=== PATIENT | female | born 1940 | race Caucasian/White ===

== ENCOUNTER 2018-04-18 12:56 | Observation (INO) ==
--- NOTE | 2018-04-18 13:25 | Emergency Department Note ---
Disposition Clinical Impression: Congestive heart failure Qualifiers: Heart failure type: unspecified Heart failure chronicity: acute Qualified Code( s): I50.9 - Heart failure, unspecified Disposition: Admitted As Inpatient Condition: Fair Referrals: Kiki Toney CNP [Primary Care Provider] - Forms: ED Satisfaction Letter Time of Disposition: 15:37 SOB HPI - General Chief Complaint: ED Shortness of Breath/Dyspnea Stated Complaint: diff breathing Time Seen by Provider: 04/18/18 13:22 Source: EMS Mode of arrival: EMS Limitations: age Nursing Notes Reviewed: Yes Vital Signs Reviewed: Yes - History of Present Illness 77-year-old who [place] and choked their concern that he she may have aspirated. She is stable on arrival. 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 Context: choking/aspiration, other Severity: mild, moderate Consistency/Duration: constant Improves with: nothing Worsens with: nothing Associated symptoms: Reports: denies other symptoms Treatment prior to arrival: oxygen Cough present: Yes Cough Description: Involuntary Cough Frequency: Intermittent Sputum production: No - Related Data Home Medications Medication Instructions Recorded Confirmed Albuterol Sulfate [Proair Hfa] 2 puff IH Q4H 01/23/16 04/18/18 Alendronate Sodium [Fosamax] 70 mg PO QWEEK 01/23/16 04/18/18 Atorvastatin [Lipitor] 20 mg PO HS 01/23/16 04/18/18 Beclomethasone Diprop 80mcg [Qvar 1 puff IH BID 01/23/16 04/18/18 80 mcg] Benztropine [Cogentin] 0.5 mg PO Q12H 01/23/16 04/18/18 Cholecalciferol (Vitamin D3) 50,000 unit PO QMONTH 01/23/16 04/18/18 [Vitamin D] Docusate [Colace] 100 mg PO BID 01/23/16 04/18/18 Metoprolol [Lopressor] 25 mg PO BID 01/23/16 04/18/18 Mirtazapine [Remeron] 15 mg PO HS 01/23/16 04/18/18 OLANZapine [Zyprexa] 30 mg PO HS 01/23/16 04/18/18 Omeprazole [PriLOSEC] 40 mg PO QAM 01/23/16 04/18/18 Warfarin [Coumadin] 3 mg PO MOWEFR 01/23/16 04/18/18 Warfarin [Coumadin] 4 mg PO SUTHSA 01/23/16 04/18/18 Losartan Potassium [Cozaar] 75 mg PO DAILY 04/18/18 04/18/18 Montelukast [Singulair] 10 mg PO DAILY 04/18/18 04/18/18 Propranolol [Inderal] 10 mg PO BID 04/18/18 04/18/18 Allergies Allergy/AdvReac Type Severity Reaction Status Date / Time allergies Allergy See Uncoded 04/18/18 13:07 Comments All systems ED: reviewed and negative except as stated. Constitutional: Denies: fever, chills, weakness, weight change Eyes: Denies: eye pain, eye discharge, vision change ENT ED: Denies: ear pain, throat pain, dental pain, hearing loss, epistaxis, congestion, dysphagia Cardiovascular: Denies: chest pain, palpitations, dyspnea on exertion, edema, syncope Respiratory: Reports: cough, dyspnea. Denies: wheezes, hemoptysis, stridor Gastrointestinal: Denies: abdominal pain, nausea, vomiting, diarrhea, constipation, hematemesis, melena, hematochezia Genitourinary: Denies: dysuria, frequency, hematuria, discharge Musculoskeletal: Denies: back pain, neck pain, arthralgia, myalgia Integumentary: Denies: rash, abrasion, lesions Neurological: Denies: headache, weakness, numbness, paresthesias, confusion, abnormal gait, vertigo Psychiatric: Denies: anxiety, depression, suicidal thoughts, homicidal thoughts , auditory hallucinations, visual hallucinations Endocrine: Denies: fatigue Hematological/Lymphatic: Denies: easy bleeding, easy bruising Allergic/Immunologic: Denies: facial swelling, urticaria Past Medical History - Past Medical History Medical history: Reports: arthritis, atrial fibrillation, COPD, GERD, hyperlipidemia, hypertension, seizures, other Surgical history: Reports: cholecystectomy Psychiatric history: Reports: anxiety 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 - Social History Smoking Status: Former smoker Smokeless Tobacco Status: No Alcohol use: Reports: none Drug use: Reports: none Physical Exam - General Limitations: age General appearance: alert, in no apparent distress - Head Head exam: atraumatic, normocephalic, normal inspection - Eye Eye exam: Present: normal appearance, PERRL, EOMI - ENT ENT exam: normal exam, normal oropharynx, mucous membranes moist - Neck Neck exam: Present: normal inspection, full ROM, trachea midline - Chest Chest inspection: Present: normal inspection, symmetric chest wall rise - Respiratory Respiratory exam: Present: normal lung sounds bilaterally - Cardiovascular Cardiovascular exam: Present: regular rate, normal rhythm, normal heart sounds - Abdominal Exam Abdominal exam: Present: soft, Non-Tender. Absent: tenderness, distention, guarding, rebound, rigidity - Extremities Exam Extremities exam: Present: normal inspection, full ROM. Absent: tenderness, pedal edema - Expanded Lower Extremity Exam Neurovascular/Tendon exam: Absent: motor deficit, sensory deficit, tendon deficit Gait: observed and normal - Back Exam Back exam: Present: normal inspection, full ROM. Absent: tenderness - Neurological Exam Neurological exam: Present: alert, oriented X3 - Psychiatric Psychiatric exam: Present: normal affect - Skin Skin exam: Present: warm, dry, intact, normal color Course - Reevaluation(s) Reevaluation #1: 77-year-old who comes in with increasing shortness of breath. Patient had a cough for about a week. She choked on a hamburger today. Chest x-ray shows some pulmonary congestion her BMP slightly elevated looks like she may have a little bit of failure. No recent echo has been done. We will admit patient for further evaluation. Time: 15:36 - Consultations Consultation #1: Discussed with , rei. Time: 15:39 Vital Signs Temperature 98.8 F 04/18/18 12:59 Pulse Rate 88 04/18/18 12:59 Respiratory Rate 16 04/18/18 12:59 Blood Pressure 162/86 04/18/18 12:59 O2 Sat by Pulse Oximetry 93 04/18/18 12:59 Temperature 98.8 F 04/18/18 12:59 Pulse Rate 74 04/18/18 14:58 Respiratory Rate 16 04/18/18 14:58 Blood Pressure 182/103 04/18/18 14:58 O2 Sat by Pulse Oximetry 98 04/18/18 14:58 Oxygen Delivery Oxygen Delivery Room Air Shortness of Breath/Dyspnea - Lab Data Result diagrams: 04/18/18 14:10 04/18/18 14:10 Lab Results 04/18/18 04/18/18 04/18/18 Range/Units 14:10 14:10 14:10 WBC 9.5 (4.3-11.1) K/mcL RBC 4.35 (3.82-4.97) M/mcL Hgb 12.5 (11.5-15.4) g/dL Hct 38.3 (35.3-44.9) % MCV 88.0 (83.0-100.0) fL MCH 28.7 (28.0-33.3) pg MCHC 32.6 (31.6-35.5) g/dL RDW 16.2 H (11.5-14.5) % Plt Count 208 (140-400) K/mcL MPV 11.8 (9.4-12.4) fL Immature Gran % 0.4 (0-4) % Seg Neutrophils % 78.1 % Lymphocytes % 13.5 % Monocytes % 5.5 % Eosinophils % 2.0 % Basophils % 0.5 % Neutrophils # 7.4 (1.6-8.9) K/mcL Lymphocytes # 1.3 (0.6-4.6) K/mcL Monocytes # 0.5 (0.0-1.3) K/mcL Eosinophils # 0.2 (0.0-0.6) K/mcL Basophils # 0.1 (0.0-0.2) K/mcL PT (9.4-12.1) Seconds INR Sodium 135 L (136-145) mEq/L Potassium 4.7 (3.5-5.1) mEq/L Chloride 102 (98-107) mEq/L Carbon Dioxide 25 (23-29) mEq/L BUN 22 (8-23) mg/dL Creatinine 0.72 (0.60-1.20) mg/dL Est GFR ( Amer) > 60 (> 60) Est GFR (Non-Af Amer) > 60 (> 60) BUN/Creatinine Ratio 31 H (6-26) Glucose 107 H (70-105) mg/dL Calculated Osmolality 284 (280-300) Lactic Acid 1.1 (0.5-2.2) mmol/L Calcium 9.6 (8.6-10.3) mg/dL Troponin I < 0.03 (< 0.04) ng/mL B-Natriuretic Peptide (Less than 100) pg/mL 04/18/18 04/18/18 Range/Units 14:10 14:10 WBC (4.3-11.1) K/mcL RBC (3.82-4.97) M/mcL Hgb (11.5-15.4) g/dL Hct (35.3-44.9) % MCV (83.0-100.0) fL MCH (28.0-33.3) pg MCHC (31.6-35.5) g/dL RDW (11.5-14.5) % Plt Count (140-400) K/mcL MPV (9.4-12.4) fL Immature Gran % (0-4) % Seg Neutrophils % % Lymphocytes % % Monocytes % % Eosinophils % % Basophils % % Neutrophils # (1.6-8.9) K/mcL Lymphocytes # (0.6-4.6) K/mcL Monocytes # (0.0-1.3) K/mcL Eosinophils # (0.0-0.6) K/mcL Basophils # (0.0-0.2) K/mcL PT 21.8 H (9.4-12.1) Seconds INR 1.9 Sodium (136-145) mEq/L Potassium (3.5-5.1) mEq/L Chloride (98-107) mEq/L Carbon Dioxide (23-29) mEq/L BUN (8-23) mg/dL Creatinine (0.60-1.20) mg/dL Est GFR ( Amer) (> 60) Est GFR (Non-Af Amer) (> 60) BUN/Creatinine Ratio (6-26) Glucose (70-105) mg/dL Calculated Osmolality (280-300) Lactic Acid (0.5-2.2) mmol/L Calcium (8.6-10.3) mg/dL Troponin I (< 0.04) ng/mL B-Natriuretic Peptide 158 H (Less than 100) pg/mL - EKG Data EKG attestation: Yes I reviewed and interpreted this EKG. Rate: Reports: normal Rhythm: Reports: A.Fib Interpretation: Reports: no acute changes
[2018-04-18 14:23] LABS: Basophils # 0.1 K/mcL (0.0-0.2); Basophils % 0.5 %; Eosinophils # 0.2 K/mcL (0.0-0.6); Hematocrit 38.3 % (35.3-44.9); Hemoglobin 12.5 g/dL (11.5-15.4); Immature Granulocytes % 0.4 % (0-4); Lymphocytes # 1.3 K/mcL (0.6-4.6); Lymphocytes % 13.5 %; Mean Corpuscular HGB Conc 32.6 g/dL (31.6-35.5); Mean Corpuscular Hemoglobin 28.7 pg (28.0-33.3); Mean Platelet Volume 11.8 fL (9.4-12.4); Monocytes # 0.5 K/mcL (0.0-1.3); Monocytes % 5.5 %; Neutrophils # 7.4 K/mcL (1.6-8.9); Platelet Count 208 K/mcL (140-400); Red Blood Count 4.35 M/mcL (3.82-4.97); Red Cell Distribution Width 16.2 % (11.5-14.5); Segmented Neutrophils % 78.1 %
[2018-04-18 14:45] LABS: BUN/Creatinine Ratio 31 (6-26); Blood Urea Nitrogen 22 mg/dL (8-23); Calcium 9.6 mg/dL (8.6-10.3); Carbon Dioxide 25 mEq/L (23-29); Chloride 102 mEq/L (98-107); Glucose 107 mg/dL (70-105); Osmolality,Calculated 284 (280-300); Potassium 4.7 mEq/L (3.5-5.1); Sodium 135 mEq/L (136-145); Troponin I < 0.03 ng/mL (< 0.04); eGFR For African Americans > 60 (> 60); eGFR For Non-African Americans > 60 (> 60)
[2018-04-18] MEDS ORDERED: Furosemide 40 MG/4 ML VIAL IVP ONE (15:35)
[2018-04-18] MEDS ORDERED: Acetaminophen 325 MG TABLET PO PRN (15:43)
[2018-04-18] MEDS ORDERED: Naloxone 0.4 MG/ML INJ IVP PRN (15:43)
--- NOTE | 2018-04-18 15:47 | Internal Med History&Physical ---
Date of Encounter: 04/18/18 Time of Encounter: 15:45 Internal Medicine - H&P: HPI Chief complaint: Shortness of breath Admitted From: Emergency Dept Plans for Post Hospital Care: Home History of present illness: Ms. Burns is a 77 year old female with history of hypertension, A. fib, hypokalemia, seizure disorder, COPD, arthritis, who comes to the ED with a suspected aspiration as she choked on food and had a cough. The patient lives at home with her 2 children and they took her to adult daycare. This is where the choking episode happened. I suspect patient has some component of dementia as she is not a good historian. The patient has a wet cough. She describes shortness of breath. She says that she has lower extremity edema on and off. The patient was hemodynamically stable in the ED. reportedly she had hypoxia into the 80s by EMS. She was noted to be hypertensive here. CBC was unremarkable. Other laboratory workup showed a BNP of 158. Chest x-ray showed signs of pulmonary vascular congestion. Patient was given Lasix 60 mg IV in the ED. denies fever, chills, nausea, vomiting, chest pain, abdominal pain, diarrhea, constipation, urinary symptoms, or neurological symptoms Past Med Surg Social Fam HX - Past Medical History Medical history: arthritis, atrial fibrillation, COPD, GERD, hyperlipidemia, hypertension, seizures, other Additional medical history: vitamin d deficency, DJD Psychiatric history: anxiety - Past Surgical History Surgical History: cholecystectomy Additional surgical history: LEFT KNEE SX, tubal ligation - Social History Smoking Status: Former smoker Smokeless Tobacco Status: No Alcohol use: none Drug use: none Internal Medicine - H&P: Meds Albuterol Sulfate [Proair Hfa] 2 puff IH Q4H 01/23/16 [History] Alendronate Sodium [Fosamax] 70 mg PO QWEEK 01/23/16 [History] Atorvastatin [Lipitor] 20 mg PO HS 01/23/16 [History] Beclomethasone Diprop 80mcg [Qvar 80 mcg] 1 puff IH BID 01/23/16 [History] Benztropine [Cogentin] 0.5 mg PO DAILY 01/23/16 [History] Cholecalciferol (Vitamin D3) [Vitamin D] 50,000 unit PO QWEEK 01/23/16 [History] Docusate [Colace] 100 mg PO BID 01/23/16 [History] Metoprolol [Lopressor] 25 mg PO BID 01/23/16 [History] Mirtazapine [Remeron] 15 mg PO HS 01/23/16 [History] OLANZapine [Zyprexa] 15 mg PO BID 01/23/16 [History] Omeprazole [PriLOSEC] 20 mg PO BID 01/23/16 [History] Warfarin [Coumadin] 1 mg PO 1800 01/23/16 [History] Warfarin [Coumadin] 4 mg PO 1800 01/23/16 [History] Losartan Potassium [Cozaar] 75 mg PO DAILY 04/18/18 [History] Montelukast [Singulair] 10 mg PO DAILY 04/18/18 [History] Propranolol [Inderal] 10 mg PO BID 04/18/18 [History] 3 Allergy/AdvReac Type Severity Reaction Status Date / Time allergies Allergy See Uncoded 04/18/18 13:07 Comments All Systems PM: A 10-system review of systems was performed and is negative for pertinent findings except as documented above in the HPI. Review of systems: All systems reviewed are negative except for as mentioned above - Constitutional Vitals: Temp Pulse Resp BP Pulse Ox 98.8 F 74 16 182/103 98 04/18/18 12:59 04/18/18 14:58 04/18/18 14:58 04/18/18 14:58 04/18/18 14:58 Exam: GEN: NAD HEENT: AT, NC, No cyanosis, oral mucosa is moist, No JVD Lymphatics: No lymphadenoapthy Eyes: Extrocular muscles intact, anicteric CVS:RRR. S1, S2, No m/r/g RESP: Diminished with bibasilar crackles ABD: Soft, NT, ND, +BS EXT: 2+ edema, No rashes, 2+ DP NEURO: Nonfocal, CN II-XII intact, No focal motor or sensory deficits Psych: Cooperative, Not anxious or depressed Internal Med - H&P Results - Labs CBC & Chem 7: 04/18/18 14:10 04/18/18 14:10 Labs: Short CBC 04/18/18 Range/Units 14:10 WBC 9.5 (4.3-11.1) K/mcL Hgb 12.5 (11.5-15.4) g/dL Hct 38.3 (35.3-44.9) % Plt Count 208 (140-400) K/mcL Neutrophils # 7.4 (1.6-8.9) K/mcL BMP 04/18/18 14:10 Sodium 135 L Potassium 4.7 Chloride 102 Carbon Dioxide 25 BUN 22 Creatinine 0.72 Glucose 107 H Calcium 9.6 Cardiac Enzymes 04/18/18 Range/Units 14:10 Troponin I < 0.03 (< 0.04) ng/mL - Impressions ITS Impressions Chest X-Ray 04/18/18 13:19 IMPRESSION: 1. No acute cardiopulmonary process. 2. Pulmonary vascular congestion and mild cardiomegaly. D/ / Niles Griffin MD / Niles Griffin MD Interpreting Provider: Niles Griffin MD - Assessment and plan (1) Pulmonary vascular congestion Current Visit: Yes Status: Acute Assessment and plan: No history of CHF. BNP is mildly elevated. We will continue to diurese IV. Monitor I&O's. Check an echocardiogram. Possibly flash pulmonary edema from uncontrolled hypertension. (2) HTN (hypertension) Current Visit: Yes Status: Acute Assessment and plan: Blood pressure is elevated. Resume previous meds. We will add IV hydralazine to be used PRN. Qualifiers: Hypertension type: essential hypertension Qualified Code(s): I10 - Essential (primary) hypertension (3) HLD (hyperlipidemia) Current Visit: Yes Status: Acute Assessment and plan: Continue statin Qualifiers: Hyperlipidemia type: unspecified Qualified Code(s): E78.5 - Hyperlipidemia , unspecified (4) Afib Current Visit: Yes Status: Acute Assessment and plan: Continue beta lino. Rate controlled. Continue anticoagulation. Qualifiers: Atrial fibrillation type: unspecified Qualified Code(s): I48.91 - Unspecified atrial fibrillation (5) GERD (gastroesophageal reflux disease) Current Visit: Yes Status: Acute Assessment and plan: Continue PPI Qualifiers: Esophagitis presence: without esophagitis Qualified Code(s): K21.9 - Gastro -esophageal reflux disease without esophagitis (6) DVT prophylaxis Current Visit: Yes Status: Acute Assessment and plan: Patient is on Coumadin - Time Spent With Patient Total time spent is greater than 50% in coordination of care (as documented) at patient's floor/unit and/or counseling patient:
[2018-04-18 15:57] LABS: INR 1.9; Prothrombin Time 21.8 Seconds (9.4-12.1)
[2018-04-18] MEDS ORDERED: *HR* Warfarin 3 MG TABLET PO ONE (18:00)
[2018-04-18] MEDS ORDERED: Warfarin perPT PO PRN (18:00)
[2018-04-18] MEDS: Beclomethasone 80mcg MDI IH SCH (20:15)
[2018-04-18] MEDS: OLANZapine 10 MG TAB.RAPDIS PO SCH (20:18)
[2018-04-18] MEDS: Mirtazapine 15 MG TABLET PO SCH (20:19)
[2018-04-18] MEDS: Furosemide 40 MG/4 ML VIAL IVP SCH (20:19)
[2018-04-19 05:56] LABS: Basophils % 0.4 %; Eosinophils % 0.2 %; Hemoglobin 13.1 g/dL (11.5-15.4); Immature Granulocytes % 0.3 % (0-4); Lymphocytes # 1.7 K/mcL (0.6-4.6); Lymphocytes % 18.5 %; Mean Corpuscular Hemoglobin 27.8 pg (28.0-33.3); Mean Platelet Volume 12.3 fL (9.4-12.4); Monocytes # 0.8 K/mcL (0.0-1.3); Monocytes % 8.8 %; Neutrophils # 6.5 K/mcL (1.6-8.9); Platelet Count 231 K/mcL (140-400); Red Blood Count 4.71 M/mcL (3.82-4.97); Red Cell Distribution Width 16.2 % (11.5-14.5); Segmented Neutrophils % 71.8 %
[2018-04-19 06:03] LABS: Prothrombin Time 22.9 Seconds (9.4-12.1)
[2018-04-19 06:15] LABS: BUN/Creatinine Ratio 25 (6-26); Blood Urea Nitrogen 22 mg/dL (8-23); Calcium 9.7 mg/dL (8.6-10.3); Carbon Dioxide 29 mEq/L (23-29); Chloride 100 mEq/L (98-107); Glucose 114 mg/dL (70-105); Magnesium 1.8 mg/dL (1.6-2.6); Osmolality,Calculated 290 (280-300); Potassium 3.8 mEq/L (3.5-5.1); Sodium 138 mEq/L (136-145); eGFR For African Americans > 60 (> 60); eGFR For Non-African Americans > 60 (> 60)
[2018-04-19] MEDS: Furosemide 40 MG/4 ML VIAL IVP SCH ×2 (08:36→17:12)
[2018-04-19] MEDS: Beclomethasone 80mcg MDI IH SCH ×2 (11:32→20:03)
--- NOTE | 2018-04-19 14:23 | Internal Med Progress Note ---
Date of Encounter: 04/19/18 Time of Encounter: 10:30 - Assessment and plan (1) Pulmonary vascular congestion Current Visit: Yes Status: Acute Assessment and plan: noted on chest XRay, started on IV Lasix; continue supportive care and supplemental O2; Echocardiogram as below; (2) HTN (hypertension) Current Visit: Yes Status: Chronic Qualifiers: Hypertension type: essential hypertension Qualified Code(s): I10 - Essential (primary) hypertension (3) HLD (hyperlipidemia) Current Visit: Yes Status: Chronic Qualifiers: Hyperlipidemia type: unspecified Qualified Code(s): E78.5 - Hyperlipidemia , unspecified (4) DVT prophylaxis Current Visit: Yes Status: Acute (5) GERD (gastroesophageal reflux disease) Current Visit: Yes Status: Chronic Qualifiers: Esophagitis presence: esophagitis presence not specified Qualified Code(s) : K21.9 - Gastro-esophageal reflux disease without esophagitis (6) Afib Current Visit: Yes Status: Chronic Assessment and plan: currently rate-controlled; continue Telemetry monitoring and anticoagulation with Coumadin; INR therapeutic; Qualifiers: Atrial fibrillation type: chronic Qualified Code(s): I48.2 - Chronic atrial fibrillation (7) COPD (chronic obstructive pulmonary disease) Current Visit: Yes Status: Chronic Assessment and plan: does not seem to be in acute exacerbation; continue PRN breathing treatments and supplemental O2; wean down FiO2 as tolerated; Qualifiers: COPD type: unspecified COPD Qualified Code(s): J44.9 - Chronic obstructive pulmonary disease, unspecified (8) Congestive heart failure Current Visit: Yes Status: Suspected Assessment and plan: Echo shows preserved EF, indeterminate diastolic dysfunction; on IV Lasix; fluid restriction and urine output monitoring; continue beta lino and ARB; supplemental O2; Qualifiers: Heart failure type: diastolic Heart failure chronicity: acute on chronic Qualified Code(s): I50.33 - Acute on chronic diastolic (congestive) heart failure - Time Spent With Patient Total time spent is greater than 50% in coordination of care (as documented) at patient's floor/unit and/or counseling patient: - Subjective Interval history: Unable to provide history due to underlying dementia; denies chest pain, shortness of breath; cannot remember why she was brought to hospital; - Constitutional Vitals: Temp Pulse Resp BP Pulse Ox 97.5 F L 67 16 105/68 96 04/19/18 10:58 04/19/18 10:58 04/19/18 11:32 04/19/18 10:58 04/19/18 11:32 General appearance: Present: A&O X 2. Absent: answers questions appropriately - Respiratory Respiratory exam: Present: CTAB (upper airway gurgling heard). Absent: accessory muscle use, rales, rhonchi, wheezes - Cardiovascular Cardiovascular exam: Present: irregular rhythm, +S1, +S2. Absent: diastolic murmur, gallop, rubs, systolic murmur - GI/Abdominal GI/Abdominal exam: Present: normal bowel sounds, soft, no peritoneal signs. Absent: distended, tenderness - Extremities Exam Extremities exam: Present: pedal edema (trace), warm, radial pulses palpable and symmetrical. Absent: calf tenderness, cyanotic - Neurological Exam Neurological exam: Present: CN II-XII intact, oriented X3, no focal deficits ( decreased strength B/L LE- foot deformities). Absent: pronater drift, facial droop, speech deficit Internal Medicine: Result - Labs CBC & Chem 7: 04/19/18 05:26 04/19/18 05:26 Labs: Short CBC 04/19/18 Range/Units 05:26 WBC 9.1 (4.3-11.1) K/mcL Hgb 13.1 (11.5-15.4) g/dL Hct 41.0 (35.3-44.9) % Plt Count 231 (140-400) K/mcL Neutrophils # 6.5 (1.6-8.9) K/mcL [facility] 04/19/18 05:26 Sodium 138 Potassium 3.8 Chloride 100 Carbon Dioxide 29 BUN 22 Creatinine 0.88 Glucose 114 H Calcium 9.7 - ABG Interpretation ABG results: PT/INR, D-dimer PT 22.9 Seconds (9.4-12.1) H 04/19/18 05:26 - Impressions Impressions Echocardiogram 04/19/18 15:43 Impressions: LVEF 55%. Normal LV chamber size, wall thickness and function. Atypical septal motion consistent with bundle branch block. Indeterminate diastolic function. Normal right ventricular structure and function. Mild tricuspid regurgitation. No pulmonary hypertension. Left Ventricular Wall Motion: Rest Echo Findings All wall segments showed normal motion. Findings: Study Quality * Technically adequate exam. ECG Findings * Atrial fibrillation. Left Ventricle * LVEF 55%. * Normal LV chamber size, wall thickness and function. * Atypical septal motion consistent with bundle branch block. * Indeterminate diastolic function. Right Ventricle * Normal right ventricular structure and function. Left Atrium * Mildly dilated left atrium. Right Atrium * Normal right atrial size. Aortic Valve * Aortic valve not well visualized. * Mildly sclerotic aortic valve leaflets. * No aortic regurgitation. * No aortic stenosis. Mitral Valve * Mildly thickened mitral valve leaflets. * No mitral regurgitation. * No mitral stenosis. Tricuspid Valve * Normal tricuspid valve structure. * Mild tricuspid regurgitation. * No pulmonary hypertension. Pulmonic Valve * Normal pulmonic valve structure and function. * No pulmonic regurgitation. Aorta * Normally sized aortic root. Pericardium * The pericardium appears normal. IVC * Normal IVC dimensions and inspiratory collapse. Pulmonary Artery * Normal visualized portions of the main pulmonary artery. Consult Discharge Plan - Plan Referrals: Kiki Toney, CLIF [Primary Care Provider] -
[2018-04-19] MEDS ORDERED: *HR* Warfarin 4 MG TABLET PO ONE (18:00)
[2018-04-19] MEDS: OLANZapine 10 MG TAB.RAPDIS PO SCH (19:43)
[2018-04-19] MEDS: Mirtazapine 15 MG TABLET PO SCH (19:44)
[2018-04-20 07:21] LABS: Basophils % 0.5 %; Eosinophils # 0.5 K/mcL (0.0-0.6); Eosinophils % 6.6 %; Hematocrit 38.4 % (35.3-44.9); Hemoglobin 12.2 g/dL (11.5-15.4); Immature Granulocytes % 0.3 % (0-4); Lymphocytes # 1.8 K/mcL (0.6-4.6); Lymphocytes % 25.3 %; Mean Corpuscular HGB Conc 31.8 g/dL (31.6-35.5); Mean Corpuscular Hemoglobin 28.2 pg (28.0-33.3); Mean Corpuscular Volume 88.7 fL (83.0-100.0); Mean Platelet Volume 11.6 fL (9.4-12.4); Monocytes # 0.7 K/mcL (0.0-1.3); Monocytes % 9.2 %; Neutrophils # 4.2 K/mcL (1.6-8.9); Platelet Count 183 K/mcL (140-400); Red Blood Count 4.33 M/mcL (3.82-4.97); Red Cell Distribution Width 16.2 % (11.5-14.5); Segmented Neutrophils % 58.1 %
[2018-04-20 07:27] LABS: INR 2.4; Prothrombin Time 26.7 Seconds (9.4-12.1)
[2018-04-20 07:42] LABS: BUN/Creatinine Ratio 21 (6-26); Blood Urea Nitrogen 20 mg/dL (8-23); Calcium 9.1 mg/dL (8.6-10.3); Carbon Dioxide 32 mEq/L (23-29); Chloride 101 mEq/L (98-107); Glucose 93 mg/dL (70-105); Magnesium 1.8 mg/dL (1.6-2.6); Osmolality,Calculated 290 (280-300); Sodium 139 mEq/L (136-145); eGFR For African Americans > 60 (> 60); eGFR For Non-African Americans 56 (> 60)
[2018-04-20] MEDS: Furosemide 40 MG/4 ML VIAL IVP SCH (08:45)
[2018-04-20] MEDS: Beclomethasone 80mcg MDI IH SCH ×2 (09:56→21:20)
[2018-04-20] MEDS: Ipratropium/Albuterol Neb 3 ML IH PRN (11:32)
--- NOTE | 2018-04-20 14:13 | Internal Med Progress Note ---
Date of Encounter: 04/20/18 Time of Encounter: 10:45 - Assessment and plan (1) Pulmonary vascular congestion Current Visit: Yes Status: Acute Assessment and plan: noted on chest XRay, will change to PO Lasix; continue supportive care and supplemental O2; Echocardiogram shows mild diastolic dysfunction; (2) HTN (hypertension) Current Visit: Yes Status: Chronic Assessment and plan: Blood pressure is well-controlled; continue home meds; Qualifiers: Hypertension type: essential hypertension Qualified Code(s): I10 - Essential (primary) hypertension (3) HLD (hyperlipidemia) Current Visit: Yes Status: Chronic Qualifiers: Hyperlipidemia type: unspecified Qualified Code(s): E78.5 - Hyperlipidemia , unspecified (4) DVT prophylaxis Current Visit: Yes Status: Acute (5) GERD (gastroesophageal reflux disease) Current Visit: Yes Status: Chronic Qualifiers: Esophagitis presence: esophagitis presence not specified Qualified Code(s) : K21.9 - Gastro-esophageal reflux disease without esophagitis (6) Afib Current Visit: Yes Status: Chronic Assessment and plan: currently rate-controlled; continue Telemetry monitoring and anticoagulation with Coumadin; INR therapeutic; Qualifiers: Atrial fibrillation type: chronic Qualified Code(s): I48.2 - Chronic atrial fibrillation (7) COPD (chronic obstructive pulmonary disease) Current Visit: Yes Status: Chronic Assessment and plan: does not seem to be in acute exacerbation; continue PRN breathing treatments and supplemental O2; wean down FiO2 as tolerated; continues to require 2L/min via NC; needs home O2 evaluation; patient is noted to be mostly bed and wheelchair-bound; PT/OT evaluation may not be needed, as family does not want placement; HHS will be resumed at discharge; will await CM consult and home O2 setup; Qualifiers: COPD type: unspecified COPD Qualified Code(s): J44.9 - Chronic obstructive pulmonary disease, unspecified (8) Congestive heart failure Current Visit: Yes Status: Chronic Assessment and plan: Echo shows preserved EF, indeterminate diastolic dysfunction; change to low dose PO Lasix; fluid restriction and urine output monitoring; continue beta lino and ARB; supplemental O2; Qualifiers: Heart failure type: diastolic Heart failure chronicity: acute on chronic Qualified Code(s): I50.33 - Acute on chronic diastolic (congestive) heart failure - Time Spent With Patient Total time spent is greater than 50% in coordination of care (as documented) at patient's floor/unit and/or counseling patient: - Subjective Interval history: Unable to provide history due to underlying dementia; denies chest pain, shortness of breath, but reports some cough; noted to have mild wet and gurgling upper airway sounds; on low supplemental O2; - Constitutional Vitals: Temp Pulse Resp BP Pulse Ox 97.7 F 82 17 102/68 96 04/20/18 11:33 04/20/18 11:33 04/20/18 11:33 04/20/18 11:33 04/20/18 11:33 General appearance: Present: A&O X 2. Absent: answers questions appropriately - Respiratory Respiratory exam: Present: CTAB (coarse breath sounds B/L, no active wheezing). Absent: accessory muscle use, rales, rhonchi, wheezes - Cardiovascular Cardiovascular exam: Present: RRR, +S1, +S2. Absent: diastolic murmur, gallop, rubs, systolic murmur - GI/Abdominal GI/Abdominal exam: Present: normal bowel sounds, soft, no peritoneal signs. Absent: distended, tenderness Internal Medicine: Result - Labs CBC & Chem 7: 04/20/18 06:36 04/20/18 06:36 Labs: Short CBC 04/20/18 Range/Units 06:36 WBC 7.3 (4.3-11.1) K/mcL Hgb 12.2 (11.5-15.4) g/dL Hct 38.4 (35.3-44.9) % Plt Count 183 (140-400) K/mcL Neutrophils # 4.2 (1.6-8.9) K/mcL BMP 04/20/18 06:36 Sodium 139 Potassium 4.0 Chloride 101 Carbon Dioxide 32 H BUN 20 Creatinine 0.97 Glucose 93 Calcium 9.1 - ABG Interpretation ABG results: PT/INR, D-dimer PT 26.7 Seconds (9.4-12.1) H 04/20/18 06:36 Consult Discharge Plan - Plan Referrals: Kiki Toney, MECHANICAL DESIGNER [Primary Care Provider] -
[2018-04-20] MEDS ORDERED: *HR* Warfarin 4 MG TABLET PO ONE (18:00)
[2018-04-20] MEDS: OLANZapine 10 MG TAB.RAPDIS PO SCH (21:17)
[2018-04-20] MEDS: Mirtazapine 15 MG TABLET PO SCH (21:17)
[2018-04-21 05:32] LABS: INR 2.7
[2018-04-21] MEDS: Ipratropium/Albuterol Neb 3 ML IH PRN (07:48)
[2018-04-21] MEDS: Beclomethasone 80mcg MDI IH SCH (07:49)
[2018-04-21] MEDS ORDERED: Furosemide 20 MG TABLET PO SCH (09:00)
[2018-04-21 11:02] VITALS: BP 121/87
--- NOTE | 2018-04-21 11:52 | Discharge Summary ---
- NOTES TO OUTPATIENT PROVIDER Notes to Outpatient Provider: Choked on food at home, has mild diastolic dysfunction, started on low dose Lasix; requiring home O2 now; Orders not resulted at time of discharge: Pending orders 04/22/18 04:00 PT/INR [Prothrombin Time INR] [COAG] AM 0400 04/23/18 04:00 PT/INR [Prothrombin Time INR] [COAG] AM 0400 04/24/18 04:00 PT/INR [Prothrombin Time INR] [COAG] AM 0400 04/25/18 04:00 PT/INR [Prothrombin Time INR] [COAG] AM 0400 04/26/18 04:00 PT/INR [Prothrombin Time INR] [COAG] AM 0400 Date of Encounter: 04/21/18 Time of Encounter: 11:50 - Discharge Diagnosis (1) Pulmonary vascular congestion Priority: Primary Status: Acute (2) HTN (hypertension) Priority: Secondary Status: Chronic Qualifiers: Hypertension type: essential hypertension Qualified Code(s): I10 - Essential (primary) hypertension (3) HLD (hyperlipidemia) Priority: Secondary Status: Chronic Qualifiers: Hyperlipidemia type: unspecified Qualified Code(s): E78.5 - Hyperlipidemia , unspecified (4) GERD (gastroesophageal reflux disease) Priority: Secondary Status: Chronic Qualifiers: Esophagitis presence: esophagitis presence not specified Qualified Code(s) : K21.9 - Gastro-esophageal reflux disease without esophagitis (5) Afib Priority: Secondary Status: Chronic Qualifiers: Atrial fibrillation type: chronic Qualified Code(s): I48.2 - Chronic atrial fibrillation (6) COPD (chronic obstructive pulmonary disease) Priority: Secondary Status: Chronic Qualifiers: COPD type: unspecified COPD Qualified Code(s): J44.9 - Chronic obstructive pulmonary disease, unspecified (7) Congestive heart failure Priority: Primary Status: Acute Qualifiers: Heart failure type: diastolic Heart failure chronicity: acute on chronic Qualified Code(s): I50.33 - Acute on chronic diastolic (congestive) heart failure (8) Acute respiratory failure Priority: Primary Status: Acute Qualifiers: Respiratory failure complication: hypoxia Qualified Code(s): J96.01 - Acute respiratory failure with hypoxia Hospital course: Ms. Burns is a 77 year old female with the above medical problems, admitted after having a choking spell at home. Mild hypoxia was noted, she was placed on supplemental O2. She was noted to have pulmonary vascular congestion on Chest XRay and given IV Lasix. Echo showed preserved EF and indeterminate diastolic function. Lasix is changed to low dose oral form. Face to face evaluation was completed for home O2; she would benefit from continuous 2L/min via [place] supplemental O2 and she is mobile at home via wheelchair. fitness services manager are involved for this home O2 arrangement. She is medically stable for discharge. Discharge discussed with: patient, nurse, social work - Time Spent with Patient Total time spent providing and/or coordinating discharge services: Greater than 30 minutes (40 min) - Discharge Medications Prescriptions: Furosemide [Lasix] 20 mg PO DAILY #30 tablet Home Medications: Albuterol Sulfate [Proair Hfa] 2 puff IH Q4H 01/23/16 [History] Alendronate Sodium [Fosamax] 70 mg PO QWEEK 01/23/16 [History] Atorvastatin [Lipitor] 20 mg PO HS 01/23/16 [History] Beclomethasone Diprop 80mcg [QVAR 80 mcg] 1 puff IH BID 01/23/16 [History] Benztropine [Cogentin] 0.5 mg PO Q12H 01/23/16 [History] Cholecalciferol (Vitamin D3) [Vitamin D3] 50,000 unit PO QMONTH 01/23/16 [ History] Docusate [Colace] 100 mg PO BID 01/23/16 [History] Metoprolol [Lopressor] 25 mg PO BID 01/23/16 [History] Mirtazapine [Remeron] 15 mg PO HS 01/23/16 [History] OLANZapine [Zyprexa] 30 mg PO HS 01/23/16 [History] Omeprazole [PriLOSEC] 40 mg PO QAM 01/23/16 [History] Warfarin [Coumadin] 3 mg PO MOWEFR 01/23/16 [History] Warfarin [Coumadin] 4 mg PO SUTHSA 01/23/16 [History] Losartan Potassium [Cozaar] 75 mg PO DAILY 04/18/18 [History] Montelukast [Singulair] 10 mg PO DAILY 04/18/18 [History] Furosemide [Lasix] 20 mg PO DAILY #30 tablet 04/21/18 [Rx] Allergies/Adverse Reactions: 3 Allergy/AdvReac Type Severity Reaction Status Date / Time allergies Allergy See Uncoded 04/18/18 13:07 Comments Date of admission: 04/18/18 16:36 Primary care physician: Kiki Toney CNP Discharging clinician: Sydni Yin Anticipated date of discharge: 04/21/18 - Constitutional Vitals: Temp Pulse Resp BP Pulse Ox 98.1 F 92 18 121/87 94 04/21/18 10:58 04/21/18 10:58 04/21/18 10:58 04/21/18 10:58 04/21/18 10:58 General appearance: Present: A&O X 2, answers questions appropriately - Cardiovascular Cardiovascular exam: Present: irregular rhythm, +S1, +S2. Absent: diastolic murmur, gallop, rubs, systolic murmur - Patient Status Disposition: Home Health Service Condition: Fair Functional capacity at discharge: wheelchair bound Overall status at discharge: patient is progressing back to baseline - Discharge Instructions Instructions: Acute Respiratory Distress Syndrome (DC) Follow Up With: Kiki Toney CNP [Primary Care Provider] - 04/24/18 2:40 pm Additional Instructions: F/up with PCP in 1-2 weeks - Diet and Activity Activity: as per physical therapy, wear oxygen at all times Diet: low fat, low cholesterol, low salt diet
--- NOTE | 2018-04-21 11:56 | Physician Discharge Referral ---
Home Health/Hosp Referral Info Transfer to: Home Health Attending Provider: Sydni Yin Provider in Charge Post Discharge: PCP - Diagnosis (1) Pulmonary vascular congestion Priority: Primary Status: Acute (2) HTN (hypertension) Priority: Secondary Status: Chronic (3) HLD (hyperlipidemia) Priority: Secondary Status: Chronic (4) GERD (gastroesophageal reflux disease) Priority: Secondary Status: Chronic (5) Afib Priority: Secondary Status: Chronic (6) COPD (chronic obstructive pulmonary disease) Priority: Secondary Status: Chronic (7) Congestive heart failure Priority: Primary Status: Acute (8) Acute respiratory failure Priority: Primary Status: Acute - Respiratory Orders Oxygen / L per min (2L/min via [place]) Smoking Cessation: Smoking cessation has been advised. For more information, call the [employer] Quit Line at 5-348-XFBV-NOW. - Diet/Nutrition Diet/Nutrition Orders: Cardiac - Activity Activity Orders: Chair - Services Needed Following services are medically necessary services: Nursing, Home Health Aide, Physical Therapy, Occupational Therapy - Transfer Medications Prescriptions: Furosemide [Lasix] 20 mg PO DAILY #30 tablet Home Medications: Albuterol Sulfate [Proair Hfa] 2 puff IH Q4H 01/23/16 [History] Alendronate Sodium [Fosamax] 70 mg PO QWEEK 01/23/16 [History] Atorvastatin [Lipitor] 20 mg PO HS 01/23/16 [History] Beclomethasone Diprop 80mcg [QVAR 80 mcg] 1 puff IH BID 01/23/16 [History] Benztropine [Cogentin] 0.5 mg PO Q12H 01/23/16 [History] Cholecalciferol (Vitamin D3) [Vitamin D3] 50,000 unit PO QMONTH 01/23/16 [ History] Docusate [Colace] 100 mg PO BID 01/23/16 [History] Metoprolol [Lopressor] 25 mg PO BID 01/23/16 [History] Mirtazapine [Remeron] 15 mg PO HS 01/23/16 [History] OLANZapine [Zyprexa] 30 mg PO HS 01/23/16 [History] Omeprazole [PriLOSEC] 40 mg PO QAM 01/23/16 [History] Warfarin [Coumadin] 3 mg PO MOWEFR 01/23/16 [History] Warfarin [Coumadin] 4 mg PO SUTHSA 01/23/16 [History] Losartan Potassium [Cozaar] 75 mg PO DAILY 04/18/18 [History] Montelukast [Singulair] 10 mg PO DAILY 04/18/18 [History] Furosemide [Lasix] 20 mg PO DAILY #30 tablet 04/21/18 [Rx] Allergies/Adverse Reactions: 3 Allergy/AdvReac Type Severity Reaction Status Date / Time allergies Allergy See Uncoded 04/18/18 13:07 Comments Certification: Further, I certify that my clinical findings support that this patient is homebound (i.e. absences from home require considerable and taxing effort and are for medical reasons or sikh services or infrequently or short duration when for other reasons) because: Homebound Reason: Patient requires assistance of a person or device to safely leave home, Leaving home requires considerable and taxing effort due to condition Attestation: My signature below is to certify that this patient is under my care and that I, or nurse practitioner, or a physician's certified teacher assistant working with me, has a face-to -face encounter with this patient.
--- NOTE | 2018-04-21 17:42 | Electrocardiograph Report ---
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
[2018-04-21] MEDS ORDERED: *HR* Warfarin 3 MG TABLET PO ONE (18:00)
== END 2018-04-21 16:14 | disposition home health service (06) ==
LOC: EMEROO 12:56 → 2ANU 12:56 → SUATTDRO 16:36 → 2ANU 17:17
PROVIDERS: ADMIT Internal Medicine; ATTEND Internal Medicine